=== PATIENT | female | born 1965 | race American Indian/Alaskan Native ===

== ENCOUNTER 2017-02-03 07:59 | Day surgery (SDC) | payer OTHER ==
[~2017-02-03 07:59] MED LIST: ANCEF/STERILE WATER 2 GM/20 ML IV NR; DIPRIVAN 10 MG/ML IV ONE; SUBLIMAZE ONE; XYLOCAINE MPF 2% ONE
[2017-02-03] MEDS ORDERED: PEPCID IV NR (08:45)
--- NOTE | 2017-02-03 08:57 | Anesthesia Consultation ---
Anesthesia Consult and Med Hx - Airway Anesthetic Teeth Evaluation: Good ROM Head & Neck: Adequate Mental/Hyoid Distance: Adequate Mallampati Class: Class III Intubation Access Assessment: Possibly Difficult - Pulmonary Exam CTA: Yes - Cardiac Exam Cardiac Exam: RRR - Pre-Operative Health Status ASA Pre-Surgery Classification: ASA2 Proposed Anesthetic Plan: General (no previous anesthesia problems) - Central Nervous System Hx Psychiatric Problems: No - Other Systems Hx Alcohol Use: No Hx Substance Use: No Hx Cancer: No
--- NOTE | 2017-02-03 08:58 | Anesthesia Day of Surgery ---
Anesthesia Day of Surgery - Day of Surgery Patient Examined: Yes Patient H&P Reviewed: Yes Patient is NPO: Yes
[2017-02-03] MEDS ORDERED: VERSED IV NR (09:00)
[2017-02-03] MEDS ORDERED: NACL 0.9% 1000 ML 1,000 ML IV SCH (09:00)
[2017-02-03] MEDS ORDERED: XYLOCAINE 1% 20 mL ONE (10:07)
[2017-02-03] MEDS ORDERED: MARCAINE 0.25% INFILTRATI ONE ×3 (10:07→10:42)
[2017-02-03] MEDS ORDERED: XYLOCAINE 1% 20 mL INFILTRATI ONE ×2 (10:42)
[2017-02-03] MEDS ORDERED: ZOFRAN ONE (11:09)
[2017-02-03] MEDS ORDERED: DECADRON ONE (11:09)
[2017-02-03] MEDS ORDERED: NACL 0.9% 1000 ML 1,000 ML ONE (11:11)
[2017-02-03] MEDS ORDERED: ePHEDrine SULFATE ONE (11:37)
--- NOTE | 2017-02-03 12:04 | Post Operative Note ---
Date of procedure: 02/03/17 Pre-op diagnosis: 1)left axillary tissue mass, 7 x 15 cm; (2 )right axillary STM 6 x 15 cm Post-op diagnosis: same Findings: See pathology Procedure: 1. Excision of left axillary mass 2. Excision of right axillary mass Anesthesia: MALIA Surgeon: JUANCARLOS HILL Estimated blood loss: minimal Pathology: list (soft tissue mass from bilateral axilla) Specimen disposition: to lab Condition: stable Disposition: PACU
--- NOTE | 2017-02-03 12:07 | Discharge Summary ---
Short Stay Discharge Plan Activity: no restrictions Diet: regular Wound: open to air, other (use ice pack off and on today; may shower in 2 days and wash incisions) Durable Medical Equipment Needed Upon Discharge: other (ice packs to both axilla ) Follow up with: PRIMARY CARE, [Primary Care Provider] - 7 Days JUANCARLOS HILL MD [Staff Physician] - 7 Days Prescriptions: oxyCODONE /ACETAMINOPHEN [Percocet 5/325] 1 - 2 tab PO Q6HR PRN #40 tablet PRN Reason: Pain Promethazine [Phenergan TAB] 25 mg PO Q6HR PRN #10 tab PRN Reason: Nausea
--- NOTE | 2017-02-03 12:37 | Operative Report ---
PREOPERATIVE DIAGNOSES: 1. Soft tissue mass, left axilla, 7 x 15 cm. 2. Right axillary soft tissue mass, 6 x 15 cm. POSTOPERATIVE DIAGNOSES: 1. Soft tissue mass, left axilla, 7 x 15 cm. 2. Right axillary soft tissue mass, 6 x 15 cm. PROCEDURE: 1. Excision of soft tissue mass, left axilla. 2. Excision of soft tissue mass, right axilla. TYPE OF ANESTHESIA: General. SURGEON: Socorro Gaming MD PHOTOGRAPH EDITOR: None. ESTIMATED BLOOD LOSS: Minimal. INDICATIONS: This is a 51-year-old woman who had enlarging soft tissue masses in both axillae and the sizes as stated as above. These had increased in size and it was difficult for the patient to put her arms down by her side. Therefore, she wanted to have these removed. DESCRIPTION OF PROCEDURE: The patient was brought to the operating room, laid supine on the table. After adequate general anesthesia was obtained, both axillae were exposed and prepped and draped in the usual fashion. Initially, attention was turned to the left side and an elliptical incision was made around the soft tissue mass, taking ellipse of the skin and the underlying soft tissue mass which clinically was consistent with accessory axillary breast tissue. Once the mass was excised, it was sent to pathology. Hemostasis was ascertained. Wound was irrigated. The subcutaneous pocket was reapproximated using 3-0 Vicryl and the skin was reapproximated using 4-0 Monocryl in running subcuticular fashion. The wound was dressed with skin glue. Attention was then turned to the right side and similarly an elliptical incision was made around the soft tissue mass. The skin and the underlying mass were excised and again as on the left side, the axillary fat was not entered. After excision of the soft tissue mass, hemostasis was ascertained. Wound was irrigated. The subcutaneous tissue was reapproximated using 3-0 Vicryl and skin was reapproximated using 4-0 Monocryl in running subcuticular fashion. The wounds were dressed with skin glue. The patient tolerated the procedure. There were no immediate complications. All counts were reported as correct. JOB# [id number] ELIJAH/NTS
[2017-02-03] MEDS ORDERED: PHENERGAN PO PRN (12:40)
[2017-02-03] MEDS ORDERED: PERCOCET 5/325 PO ONE (13:00)
[2017-02-03 13:01] VITALS: BP 126/74
== END 2017-02-03 08:00 | disposition home or self-care (01) ==
LOC: OR 07:59
PROVIDERS: ATTEND Surgery
DX: M79.9 Soft tissue disorder, unspecified (principal); E66.9 Obesity, unspecified; Z68.35 Body mass index [BMI] 35.0-35.9, adult
CPT/HCPCS: 21552; 88305; J0690; J1100; J2250; J2405; J2704; J3010; J7030; 88307